=== PATIENT | male | born 2005 | race Caucasian/White ===

== ENCOUNTER 2024-10-23 08:44 | Day surgery (SDC) | payer OTHER ==
[~2024-10-23] VITALS: Ht 185.4 cm; Wt 124.9 kg
[2024-10-23] MEDS: TRANEXAMIC ACID 100 MG/ML 10ML VIAL IV ONE (06:00)
[~2024-10-23 08:44] MED LIST: LIDOCAINE 2% 100MG/5ML SDV (FOR ANES.) As Ordered ONE; ceFAZolin SOD 2 GM IV ONCE IV ONE; propofoL 200 MG/20 ML VIAL As Ordered ONE
[2024-10-23] MEDS: EPINEPHrine INJ 1 MG/ML 1ML AMP PN ONE (09:40)
[2024-10-23] MEDS: LIDOCAINE 1% SDV 5ML VIAL PN ONE (09:40)
[2024-10-23] MEDS: ROPIvacaine 0.5% 30ML VIAL PN ONE (09:40)
[2024-10-23] MEDS: dexAMETHasone 10MG/1ML VIAL PRES.FREE PN ONE (09:40)
[2024-10-23] MEDS: LR 1,000 ML IV SCH (09:49)
[2024-10-23] MEDS: MIDAZOLAM INJ 2MG/2ML VIAL IV PRN (10:07)
[2024-10-23] MEDS: fentaNYL 100 MCG/2 ML INJECTION IV PRN (10:07)
[2024-10-23] MEDS: ceFAZolin SOD 3 GM in DEXTROSE 5% (D5W) MINI-BAG PLU 1... IV ONE (10:26)
[2024-10-23] MEDS ORDERED: ACETAMINOPHEN 1000MG/100ML IV BAG As Ordered ONE (10:34)
[2024-10-23] MEDS: TRANEXAMIC ACID 100 MG/ML 10ML VIAL As Ordered ONE (10:35)
[2024-10-23] MEDS ORDERED: KETOROLAC 30 MG/ML 1ML VIAL As Ordered ONE (10:45)
[2024-10-23] MEDS ORDERED: ONDANSETRON 4MG 2ML VIAL As Ordered ONE (10:46)
[2024-10-23] MEDS ORDERED: fentaNYL 250 MCG/5 ML INJECTION As Ordered ONE (11:15)
[2024-10-23] MEDS: EPINEPHrine 1MG/ML INJ 30ML MD-VIAL As Ordered ONE (11:30)
[2024-10-23] MEDS ORDERED: fentaNYL 100 MCG/2 ML INJECTION As Ordered ONE (12:54)
[2024-10-23] MEDS ORDERED: fentaNYL 100 MCG/2 ML INJECTION IV PRN (13:45)
[2024-10-23] MEDS ORDERED: oxyCODONE 5MG TAB PO PRN (13:45)
[2024-10-23] MEDS ORDERED: HYDROmorphone HCL 2MG/ML 1ML VIAL As Ordered ONE (14:24)
[2024-10-23] MEDS: HYDROMORPHONE HCL 0.5 MG/ 0.5 ML SYRINGE IV PRN (14:26)
[2024-10-23] MEDS: ONDANSETRON 4MG 2ML VIAL IV PRN (14:51)
[2024-10-23 15:35] VITALS: BP 130/63
[2024-10-23 15:50] VITALS: TEMP 98.2; O2SAT 99
== END 2024-10-23 16:10 | disposition home or self-care (01) ==
LOC: M SDC 08:44
PROVIDERS: ATTEND Orthopaedic Surgery
DX: M22.2X1 Patellofemoral disorders, right knee (principal); M22.41 Chondromalacia patellae, right knee; M67.51 Plica syndrome, right knee; R06.2 Wheezing; Z68.36 Body mass index [BMI] 36.0-36.9, adult; F17.290 Nicotine dependence, other tobacco product, uncomplicated
CPT/HCPCS: 27427; 76000; C1713; C1762; J0131; J0171; J0690; J1100; J1171; J1885; J2250; J2405; J2795; J3010